=== PATIENT | female | born 1990 | race Hispanic/Latino ===

== ENCOUNTER 2018-11-07 15:52 | Emergency (ER) | payer OTHER ==
[2018-11-07 15:58] VITALS: BP 121/76; PULSE 84; RESP 16; TEMP 98.8; O2SAT 100
--- NOTE | 2018-11-07 16:29 | C.PDOC ---
History Of Present Illness 28 y/o female, who is 9 weeks , presents to ED complaining of constipation. Patient states she saw her doctor and was placed on iron pills. After that, patient developed constipation and states she doesnt know what is safe to take for medication. Patient went to urgent care clinic and was told that she may have impaction and to come here to ER. Last bowel movement was 5 days ago. Time Seen by Provider: 11/07/18 16:15 Chief Complaint (Nursing): Abdominal Pain History Per: Patient History/Exam Limitations: no limitations Onset/Duration Of Symptoms: Days Current Symptoms Are (Timing): Still Present Past Medical History Reviewed: Historical Data, Nursing Documentation, Vital Signs Vital Signs: Last Vital Signs Temp 98.8 F 11/07/18 15:55 Pulse 84 11/07/18 15:55 Resp 16 11/07/18 15:55 BP 121/76 11/07/18 15:55 Pulse Ox 100 11/07/18 15:55 Family History: States: No Known Family Hx - Social History Hx Alcohol Use: No Hx Substance Use: No - Immunization History Hx Tetanus Toxoid Vaccination: No Hx Influenza Vaccination: No Hx Pneumococcal Vaccination: No Review Of Systems Except As Marked, All Systems Reviewed And Found Negative. Constitutional: Negative for: Fever Gastrointestinal: Positive for: Constipation. Negative for: Abdominal Pain Physical Exam - Physical Exam Appears: Non-toxic, No Acute Distress Skin: Warm, Dry, No Rash Head: Atraumatic, Normacephalic Eye(s): bilateral: Normal Inspection Oral Mucosa: Moist Neck: Supple Chest: Symmetrical Cardiovascular: Rhythm Regular, No Murmur Respiratory: Normal Breath Sounds, No Rales, No Rhonchi, No Wheezing Gastrointestinal/Abdominal: Soft, No Tenderness Rectal: Other (No stool noted) Extremity: Bilateral: Atraumatic, Normal Color And Temperature, Normal ROM Neurological/Psych: Oriented x3, Normal Speech ED Course And Treatment O2 Sat by Pulse Oximetry: 100 (RA) Pulse Ox Interpretation: Normal Progress Note: Patient was given prescriptions for ducolax, lactulose, and magnesium hydroxide. Advised not to take all three. Instructed patient to try one by one to see which will help, no more than one per day. Disposition - Disposition Disposition: HOME/ ROUTINE Disposition Time: 16:27 Condition: STABLE Additional Instructions: Follow up with your OBGYN within 1-2 days. Return to ED if feel worse. Prescriptions: Bisacodyl [Ducolax] 1 - 3 tab PO DAILY #30 ect Lactulose 30 ml PO DAILY PRN #300 ml PRN Reason: Constipation Magnesium Hydroxide [Milk Of Magnesia] 30 ml PO DAILY #300 ml Instructions: Constipation, Adult (DC) Forms: [facility] (Ukrainian) - Clinical Impression Clinical Impression: Constipation - PA / [employer] / Resident Statement MD/DO has reviewed & agrees with the documentation as recorded. - Scribe Statement The provider has reviewed the documentation as recorded by the Scribarmando Glover All medical record entries made by the Madelineibarmando were at my direction and personally dictated by me. I have reviewed the chart and agree that the record accurately reflects my personal performance of the history, physical exam, medical decision making, and the department course for this patient. I have also personally directed, reviewed, and agree with the discharge instructions and disposition.
== END 2018-11-07 16:50 | disposition home or self-care (01) ==
LOC: C.ER 15:52
DX: K59.00 Constipation, unspecified (principal)